=== PATIENT | female | born 1955 | race Caucasian/White ===

== ENCOUNTER → 2017-04-03 | Outpatient (CLI) | payer BC ==
--- NOTE | 2017-04-03 11:33 | US ---
EXAMINATION TYPE: US thyroid st tissue head/neck DATE OF EXAM: 04/03/2017 COMPARISON: 03/12/2014 CLINICAL HISTORY: E04.1 Thyroid nodule. F/U thyroid nodules GLAND SIZE: Right Lobe: 4.7 x 1.4 x 2.1 cm Overall Parenchyma: heterogenous Left Lobe: 3.7 x 0.8 x 1.1 cm Overall Parenchyma: homogeneous Isthmus Thickness: 0.2 cm NODULES RIGHT: # of nodules measured on right: 4 1. 1.8 X 0.9 x 1.5 cm hypoechoic solid nodule at the upper pole with well-defined margins;. This n odule is wider than tall and shows intranodular vascularity. Prior size: 2.4 x 1.4 x 1.6 cm 2. 1.3 X 1.0 x 1.2 cm hypoechoic solid nodule at the lower pole with well-defined margins; This nodu le is wider than tall and shows intranodular vascularity. Prior size: 1.3 x 1.1 x 1.1 cm 3. 0.8 X 0.5 x 0.7 cm hypoechoic solid nodule at the mid pole with well-defined margins; This nodul e is wider than tall and shows intranodular vascularity. Prior size: 0.8 x 0.5 x 0.7 cm 4. 1.1 X 0.8 x 1.2 cm hypoechoic solid nodule at the Mid/Medial pole with well-defined margins; Thi s nodule is wider than tall and shows intranodular vascularity. Prior size: Not visualized on prior LEFT: # of nodules measured on left: 1 1. 0.6 X 0.6 x 0.5 cm isoechoic solid nodule at the lower pole with poorly defined margins; This no dule is wider than tall and shows intranodular vascularity. Prior size: 0.7 x 0.4 x 0.5 cm Bilateral neck scanned, no evidence of lymphadenopathy. Stable nodules bilaterally with new nodule on right IMPRESSION: 1. Single new nodule within the right lobe of the thyroid measuring 1.2 cm. Remaining nodules are sta ble in size with no significant interval change.
== END | disposition home or self-care (01) ==
LOC: RADUSWWP 10:59
PROVIDERS: ATTEND Otolaryngology
DX: E04.1 Nontoxic single thyroid nodule (principal)
CPT/HCPCS: 76536

== ENCOUNTER → 2017-09-25 | Outpatient (CLI) | payer BC ==
--- NOTE | 2017-09-25 13:26 | US ---
EXAMINATION TYPE: US thyroid st tissue head/neck DATE OF EXAM: 09/25/2017 COMPARISON: US 04/03/2017 CLINICAL HISTORY: E04.1 THYROID NODULE. Follow up to previous GLAND SIZE: Right Lobe: 4.6 x 1.7 x 1.7 cm Overall Parenchyma: heterogenous Left Lobe: 3.7 x 0.9 x 1.0 cm Overall Parenchyma: heterogeneous Isthmus Thickness: 0.2 cm NODULES RIGHT: # of nodules measured on right: 3 1. 1.6 X 1.7 x 1.4 cm hypoechoic solid nodule at the upper/mid pole with well-defined margins; pres ent with microcalcifications. This nodule is wider than tall and shows intranodular vascularity. Prior size: Consolidation of previous nodule 1 & 2. 2. 0.8 X 0.5 x 0.7 cm hypoechoic solid nodule at the upper pole with well-defined margins; . This n odule is wider than tall and shows intranodular vascularity. Prior size: 0.8 x 0.5 x 0.7 cm 3. 0.7 X 0.3 x 0.4 cm hypoechoic solid nodule at the lower pole with well-defined margins; . This n odule is wider than tall and shows intranodular vascularity. Prior size: No previous LEFT: # of nodules measured on left: 0 ISTHMUS: # of nodules measured in the isthmus: 0 Bilateral neck scanned, no evidence of lymphadenopathy. IMPRESSION: Right lobe thyroid nodules. One of these is larger than 1 cm. No interval growth is identified.
== END | disposition home or self-care (01) ==
LOC: RADUSWWP 10:54
PROVIDERS: ATTEND Otolaryngology
DX: E04.2 Nontoxic multinodular goiter (principal)
CPT/HCPCS: 76536

== ENCOUNTER → 2017-12-15 | Outpatient (CLI) | payer BC ==
--- NOTE | 2017-12-19 08:04 | MM ---
Reason for exam: clinical finding. Last mammogram was performed 5 months ago. History: Patient is postmenopausal. Family history of breast cancer in paternal grandmother. Indicated problem(s): pain in the right breast. Physical Findings: Nurse did not find any significant physical abnormalities on exam. MG Diagnostic Mammo RT w CAD CC and MLO view(s) were taken of the right breast. Prior study comparison: July 31, 2017, bilateral MG screening mammo w CAD. June 17, 2016, bilateral MG screening mammo w CAD. The breast tissue is heterogeneously dense. This may lower the sensitivity of mammography. There is no discrete abnormality. These results were verbally communicated with the patient and result sheet given to the patient on 12/15/17. ASSESSMENT: Negative, BI-RAD 1 RECOMMENDATION: Return to routine screening mammogram schedule for both breasts. Back on schedule for July 2018.
--- NOTE | 2017-12-19 08:05 | USB ---
Reason for exam: clinical finding. History: Patient is postmenopausal. Family history of breast cancer in paternal grandmother. Indicated problem(s): pain in the right breast. US Breast RT Right breast ultrasound includes all four quadrants, the retroareolar region and axilla. Finding demonstrates no cystic or solid lesion seen. These results were verbally communicated with the patient and result sheet given to the patient on 12/15/17. ASSESSMENT: Negative, BI-RAD 1 RECOMMENDATION: Return to routine screening mammogram schedule for both breasts. Back on schedule for July 2018.
== END | disposition home or self-care (01) ==
LOC: RADMAMWWP 15:04
PROVIDERS: ATTEND Midwife
DX: N64.4 Mastodynia (principal)
CPT/HCPCS: 77065